=== PATIENT | male | born 1935 | race African-American/Black ===

== ENCOUNTER → 2016-09-30 | Outpatient (CLI) | payer MEDICARE, OTHER ==
--- NOTE | 2016-09-30 15:44 | RAD ---
Indication prostate malignancy. AP and lateral views targeted to the sacrococcyx were obtained. The sacrum and coccyx appear unremarkable. No blastic disease is suggested. There are some degenerative changes involving the visualized lower lumbar spine. IMPRESSION: Normal plain films of the sacrum and coccyx
== END | disposition home or self-care (01) ==
LOC: RAD 14:35
PROVIDERS: ATTEND Radiology Diagnostic Radiology
DX: C61 Malignant neoplasm of prostate (principal)
CPT/HCPCS: 72220